=== PATIENT | male | born 1980 | race African-American/Black ===

== ENCOUNTER 2018-03-26 18:06 | Emergency (ER) | payer OTHER ==
[2018-03-26] MEDS ORDERED: DEXAMETHASONE 4 MG TABLET PO ONE (19:40)
[2018-03-26] MEDS ORDERED: CYCLOBENZAPRINE HCL 10 MG TABLET PO ONE (19:40)
[2018-03-26] MEDS ORDERED: KETOROLAC TROMETHAMINE 60 MG/2 ML SDV IM ONE (19:40)
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
[2018-03-26] MEDS ORDERED: IBUPROFEN 800 MG TABLET PO ONE (19:58)
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
[2018-03-26 21:02] VITALS: BP 139/82
== END 2018-03-26 21:11 | disposition home or self-care (01) ==
LOC: ER 18:06
DX: M54.5 Low back pain (principal); M54.6 Pain in thoracic spine; V87.7XXA Person injured in collision between other specified motor vehicles (traffic), initial encounter
CPT/HCPCS: 72070; 72110; 99284